=== PATIENT | male | born 1995 | race Two or more races ===

== ENCOUNTER 2019-03-22 20:38 | Emergency (ER) | payer OTHER ==
[~2019-03-22] VITALS: Ht 160 cm; Wt 54.4 kg
[2019-03-22 21:17] VITALS: BP 165/82
[2019-03-23] MEDS ORDERED: ACETAMINOPHEN/CODEINE#3 (300/30mg) TAB PO ONE (02:45)
== END 2019-03-23 03:06 | disposition home or self-care (01) ==
LOC: ER 20:41
DX: S60.142A Contusion of left ring finger with damage to nail, initial encounter (principal); F12.10 Cannabis abuse, uncomplicated; W22.8XXA Striking against or struck by other objects, initial encounter; Y93.89 Activity, other specified; Y92.89 Other specified places as the place of occurrence of the external cause; Y99.8 Other external cause status
CPT/HCPCS: 73140

== ENCOUNTER 2019-07-09 06:20 | Emergency (ER) | payer OTHER ==
[~2019-07-09] VITALS: Ht 165.1 cm; Wt 56.7 kg
[2019-07-09 06:53] VITALS: BP 136/53
[2019-07-09] MEDS ORDERED: KETOROLAC TROMETH 60MG/2ML VIAL IM ONE (08:00)
== END 2019-07-09 08:55 | disposition home or self-care (01) ==
LOC: ER 06:20
DX: S29.012A Strain of muscle and tendon of back wall of thorax, initial encounter (principal); F12.10 Cannabis abuse, uncomplicated; X50.1XXA Overexertion from prolonged static or awkward postures, initial encounter; Y93.89 Activity, other specified; Y92.89 Other specified places as the place of occurrence of the external cause; Y99.8 Other external cause status
CPT/HCPCS: 71046; 96372; 99283; J1885

== ENCOUNTER 2021-03-27 15:32 | Emergency (ER) | payer BC, OTHER ==
[~2021-03-27] VITALS: Ht 162.6 cm; Wt 54.4 kg
[2021-03-27] MEDS ORDERED: ONDANSETRON HCL 4 MG/2 ML VIAL IV ONE (16:00)
[2021-03-27] MEDS ORDERED: HYDROmorphone HCL 2 MG/ML VL IV ONE (16:00)
[2021-03-27] MEDS ORDERED: KETAMINE 50mg/ML 10ml Vial (500mg/10ml) IV ONE (16:15)
[2021-03-27 19:15] VITALS: BP 131/65
== END 2021-03-27 19:20 | disposition home or self-care (01) ==
LOC: ER 15:32
DX: S43.085A Other dislocation of left shoulder joint, initial encounter (principal); X58.XXXA Exposure to other specified factors, initial encounter; Y93.89 Activity, other specified; Y92.89 Other specified places as the place of occurrence of the external cause; Y99.8 Other external cause status
CPT/HCPCS: 23650; 73020; 96374; 96375; 99284; J1170; J2405